=== PATIENT | female | born 1945 | race Caucasian/White ===

== ENCOUNTER → 2016-12-27 | Day surgery (SDC) | payer OTHER ==
--- NOTE | 2016-12-21 13:11 | MH ---
cc: BRAULIO HILL DATE OF ADMISSION: 12/27/2016 ADMITTING DIAGNOSIS 1. Complex tear of the lateral meniscus of her right knee 2. Medial meniscus tear right knee 3. Chondromalacia right knee 4. Effusion right knee 5. Synovitis right knee, 6. Michelle's cyst right knee 7. Pain of the right knee. HISTORY OF PRESENT ILLNESS The patient is a 71-year-old white female who has experienced almost a five-month history of pain involving her right knee. In July of this year while walking through a field with her dog, she stepped into a hole resulting in her falling to the ground level and sustaining a twisting stress of her right knee. She did note pain at that time but was able to conform to weightbearing activities and, for several days thereafter, seemed to be doing reasonably well until she began to note recurrent pain especially about the anterior aspect of her knee. She was later seen by her primary care physician, Dr. Crisostomo who ordered x-ray studies, the results of which were negative for any acute fracture with some mild osteoarthritis being described and a small joint effusion. The patient was initially advised conservative management, which included ice application, rest and Tylenol. She was later seen by the undersigned physician and at that time reported a gradual trend of improvement, although noting some lingering soreness somewhat more pronounced about the lateral aspect of her knee. She had been able to conform to her daily routine in an independent manner. Her clinical findings at that time were thought to be consistent with a contusion of her right knee and transient synovitis for which the patient was prescribed diclofenac 75 mg and referred for initiating physical therapy. She was followed on an outpatient basis thereafter indicating there had been a slight trend of improvement but remaining symptomatic with limited mobility about her right knee and an inability to kneel onto her extremity. Based upon her lingering symptoms, a recommendation was made to proceed with an MRI scan the results of which identified diffuse tearing of the lateral meniscus including a highly macerated tear of the anterior horn and mildly extruded body segment. An additional horizontal tear of the body of the medial meniscus was noted. There were tricompartmental chondral changes with an effusion, synovitis and trace popliteal cyst. The patient had remained symptomatic with pain about her right knee for which the findings of the scan were reviewed and treatment options discussed. The pros and cons of continuing with conservative management versus operative intervention that would involve arthroscopic surgery was outlined. Emphasis was made regarding the fact that the decision to proceed with surgery would be left entirely to the patient's discretion. The patient felt that her symptoms were of such a degree that she was desirous of proceeding with treatment as discussed and, in compliance with her wishes, she is currently being admitted in order that the above be accomplished. PAST MEDICAL HISTORY, HOSPITALIZATIONS, SURGERIES 1. Tonsillectomy, 2. D&C 3. Colonoscopy 4. Lumpectomy of the right breast which subsequently led to a diagnosis of stage I cancer that did result in the patient receiving additional radiation therapy. Her current medical illnesses include elevated cholesterol for which she takes lovastatin 20 mg daily. Additional MEDICATIONS 1. Anastrazole 1 mg daily. 2. Calcium three times daily. 3. Potassium daily, 4. Vitamin D3 daily. 5. Glucosamine. 6. Chondroitin ALLERGIES The patient denies any known drug allergies. REVIEW OF SYSTEMS She does wear glasses. Denies headache, seizure or syncope. No sinus congestion or epistaxis. Auditory acuity is intact, although she does have a history of tinnitus. No bleeding gums or dysphagia. Denies cough, shortness of breath, upper respiratory infection, pneumonia or tuberculosis. No angina or heart disease. Her appetite is good. Bowel movements are regular. No hepatitis, gallbladder disease, ulcers or hemorrhoids. No urinary tract infection. No kidney stones. No psychiatric illness. She reports a history of cataracts. Her remaining review of systems is unremarkable and noncontributory. FAMILY HISTORY The patient has been for 32 years. Her is 74 years of age and described as being in good health. No children. Family history is positive for heart disease, kidney disease and COPD. SOCIAL HISTORY The patient completed a high school education. 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 She denies active use of tobacco for 25 years, but had been approximately a two pack per day user for 25 years prior to that time. Denies ethanol consumption. PHYSICAL EXAMINATION GENERAL: Height 5 feet 3 inches, weight 176 pounds. An alert, oriented and responsive 71-year-old white female who sits quietly upon the examination table with no obvious distress. HEENT: Pupils are equally round and reactive to light. Extraocular movements full. Sclerae clear. External nares clear. External auditory canals clear. Dental intact. Mucous membranes pink and moist. Pharynx clear. NECK: Supple. Active range of motion without significant pain. Carotid pulse bilaterally. Trachea midline. Thyroid without enlargement. LUNGS: Clear to auscultation and percussion. No CVA tenderness. No discomfort throughout the dorsal lumbar spine. HEART: Regular rhythm. No murmur or gallop. ABDOMEN: Soft, nontender. Bowel sounds present. PELVIC: Per primary care physician. EXTREMITIES: Right knee - There is a mild fullness about the knee consistent with an intra-articular effusion. Medial joint line tenderness. No palpable deformity. Apprehension and compression sign negative. Satisfactory mobility of the knee joint with mild limitation at the extreme of flexion. No significant crepitation. No collateral ligamentous instability. Irvin test and drawer sign negative. Pivot shift and Artemio sign positive for medial compartment pain. Straight-leg raising negative at 80 degrees. Mild antalgic gait. NEUROLOGIC: Cranial nerves II-XII grossly intact. IMPRESSION 1. Medial and lateral meniscus tear of the right knee 2. Chondromalacia right knee 3. Effusion right knee 4. Synovitis right knee, 5. Michelle's cyst right knee 6. Pain right knee PLAN Arthroscopic surgery and possible arthrotomy right knee. The nature of the planned surgical procedure, the potential complications and risks associated, the expectations of surgery and the consent form were thoroughly reviewed with the patient prior to her admission to the hospital. Clair has indicated her full understanding regarding all of the above and given consent to proceed with treatment as outlined. Medical evaluation and clearance for surgery will be completed by her primary care physician, Dr. Chato Crisostomo. MD CELIA Esquivel/ /3:45 PM /1:15 PM
[~2016-12-27] VITALS: Ht 160 cm; Wt 79.7 kg
[~2016-12-27] MED LIST: ACETAMINOPHEN 1000 MG/100 ML VIAL IV ONE; ACETAMINOPHEN/HYDROcodone 325 MG/5 MG TAB PO PRN; ANAS1TAB PO; CALC1TAB12 PO; CHLORHEXIDINE GLUCONATE 2 % 1 PACK (2 CLOTHS) TOPICAL PRN; DEXAMETHASONE SOD PHOS 4 MG/ML VIAL ONE; DO NOT ADM ANY ANTICOAGULANT DRUGS PRN; ERGO2000 PO; FAMOTIDINE 20 MG/2 ML VIAL ONE; INSULIN HUMAN REGULAR 1,000 UNITS/10 ML VIAL SQ PRN; KETOROLAC TROMETHAMINE 60 MG/2 ML (IM) VIAL IM ONE; LACTATED RINGER'S 1000 ML INJ 1,000 ML IV ONE; LACTATED RINGER'S 1000 ML IV PRN; LIDOCAINE HCL 2% 50 ML VIAL ONE; LOVA20TA PO; METOPROLOL TARTRATE 25 MG TAB PO PRN; MIDAZOLAM HCL 2 MG/2 ML VIAL ONE; MORPHINE SULFATE 8 MG/ML INJ IM PRN; MULTTAB67 PO; ONDANSETRON HCL 4 MG/2 ML VIAL IV PUSH ONE; POTA595T PO; POVIDONE IODINE 5% (ANTISEPSIS KIT) 4 APPLICATIONS EACH NARE PRN; POVIDONE IODINE 7.5% SCRUB 118 ML BOTTLE TOPICAL SCH; PROMETHAZINE INJ 25 MG/ML VIAL IM PRN; PROPOFOL 200 MG/20 ML AMP IV ONE; SODIUM CHLORID 0.9% 500 ML IV PRN; TH GCAP PO; TRIAMCINOLONE ACETONIDE 40 MG/ML VIAL ONE; ceFAZolin 2 GM PREMIX 50 ML IV SCH; ePHEDrine/NS 25 MG/5 ML SYR IV ONE; fentaNYL CITRATE 250 MCG/5 ML AMP ONE
[2016-12-27 06:32] VITALS: BP 121/76; PULSE 63; RESP 18; TEMP 98.9; O2SAT 97
[2016-12-27 13:25] VITALS: BP 135/69; PULSE 76; RESP 18; TEMP 97.5; O2SAT 95
--- NOTE | 2016-12-27 13:39 | MP ---
cc: BRAULIO HILL DATE OF SURGERY: 12/27/2016 PREOPERATIVE DIAGNOSIS Complex tear of the lateral meniscus right knee, medial meniscus tear right knee, chondromalacia right knee, effusion right knee, synovitis right knee, Michelle's cyst right knee, pain right knee. POSTOPERATIVE DIAGNOSIS Complex tear of the lateral meniscus right knee, medial meniscus tear right knee, chondromalacia right knee, effusion right knee, synovitis right knee, Michelle's cyst right knee, pain right knee, including osteochondritis desiccans, right knee. PROCEDURE Partial lateral meniscectomy, chondroplasty of the patellofemoral joint and shaving and debridement with chondroplasty of the medial femoral condyle, right knee. FORMAT Following induction of satisfactory general anesthesia by LMA insertion as completed per the Department of Anesthesia, examination of the right knee revealed a satisfactory range of motion with no appreciable ligamentous instability. The extremity proper was positioned into the surgical services asst knee akbar, prepped with Betadine solution and draped into a sterile field in the routine manner. Prior to initiation of the actual procedure the standard time-out protocol was completed, all parameters were appropriately addressed and confirmed by operating room personnel. Arthroscopic instrumentation was introduced through stab wound utilizing cannula with sharp and blunt trocar, the inflow irrigation by way of a medial suprapatellar portal, the arthroscope through a medial parapatellar portal and a probe through a lateral parapatellar portal. Examination of the suprapatellar pouch revealed generalized reactive synovitis that was obvious articular irregularity throughout the patellofemoral joint consistent with localized chondromalacia. Within the lateral compartment a degenerative type tear of the lateral meniscus with associated degenerative changes throughout the articular surface of both the femoral condyle and the tibial plateau. Proliferative synovium extended into the intercondylar region. The anterior cruciate ligament was identified and noted to be intact. Examination of the medial compartment revealed a very significant osteochondral defect with delamination of full thickness of the cartilage from the weightbearing surface of the medial femoral condyle. There was minimal irregularity of the medial meniscus with some localized degenerative tearing being appreciated. Utilizing a 3.8 full radius resector as well as a biting suction forceps, debridement of the medial meniscus was accomplished followed by a generalized shaving and debridement with chondroplasty of the medial femoral condyle. Limited debridement was completed throughout the intercondylar region and the shaver was thereafter oriented into the lateral compartment where a partial lateral meniscectomy was accomplished as well as a generalized shaving and debridement throughout the articular surfaces of the lateral femoral condyle and the tibial plateau. Upon completion of same the shaver was oriented into the suprapatellar region where a generalized partial synovectomy was accomplished as well as a debridement of the patellofemoral joint. Upon completion of same the joint space was thoroughly lavaged and suctioned dry and intra-articular Kenalog, lidocaine injection was completed. Portal sites were reapproximated with Steri-Strips over which Xeroform gauze and a bulky dry sterile dressing were placed. Anesthesia was discontinued and the patient thus transferred to a hospital stretcher and returned to the recovery room in satisfactory condition, having tolerated her operative procedure well. Estimated blood loss was less than 20 ccs. MD CELIA Esquivel/TLL /12:16 PM /1:28 PM
== END | disposition home or self-care (01) ==
LOC: HSDC 05:40
PROVIDERS: ATTEND Orthopaedic Surgery
DX: S83.281A Other tear of lateral meniscus, current injury, right knee, initial encounter (principal); M94.261 Chondromalacia, right knee; M25.461 Effusion, right knee; M65.9 Synovitis and tenosynovitis, unspecified; S80.01XA Contusion of right knee, initial encounter; M93.261 Osteochondritis dissecans, right knee; M71.21 Synovial cyst of popliteal space [Baker], right knee; W01.0XXA Fall on same level from slipping, tripping and stumbling without subsequent striking against object, initial encounter; Y93.01 Activity, walking, marching and hiking; Y92.89 Other specified places as the place of occurrence of the external cause
CPT/HCPCS: 01400; 29881; J0131; J0690; J1100; J1885; J2250; J2405; J3010; J3301; J7120